=== PATIENT | female | born 1955 | race American Indian/Alaskan Native ===

== ENCOUNTER 2016-10-17 14:42 | Emergency (ER) | payer MEDICAID ==
[2016-10-17 14:48] VITALS: BMI 23.6
[2016-10-17 14:49] VITALS: BP 148/82; PULSE 90; RESP 18; TEMP 98.3; O2SAT 100
--- NOTE | 2016-10-17 16:01 | RAD ---
HISTORY: Right upper back pain COMPARISON: Chest x-ray performed 01/02/15 TECHNIQUE: Chest PA and lateral FINDINGS: LUNGS: No focal consolidation. Please note that chest x-ray has limited sensitivity for the detection of pulmonary masses. PLEURA: No significant pleural effusion identified. No definite pneumothorax . CARDIOVASCULAR: Heart size appears top normal. Ectatic aorta. OSSEOUS STRUCTURES: No acute osseous abnormality identified. VISUALIZED UPPER ABDOMEN: Unremarkable. OTHER FINDINGS: None. IMPRESSION: No focal consolidation, significant pleural effusion, or definite pneumothorax identified.
--- NOTE | 2016-10-17 16:14 | C.PDOC ---
Time Seen by Provider: 10/17/16 15:03 Chief Complaint (Nursing): Back Pain History Per: Patient Onset/Duration Of Symptoms: Days (about 1 month), Waxing/Waning Current Symptoms Are (Timing): Still Present Full Body Front + Back: 1 - pain Quality Of Discomfort: Sharp, "Pain" Severity: Moderate Associated Symptoms: None Exacerbating Factor(s): Turning, Movement Additional History Per: Prior Records Past Medical History Reviewed: Historical Data, Nursing Documentation, Vital Signs Vital Signs: Last Vital Signs Temp 98.3 F 10/17/16 14:48 Pulse 90 10/17/16 14:48 Resp 18 10/17/16 14:48 BP 148/82 10/17/16 14:48 Pulse Ox 100 10/17/16 14:48 - Medical History PMH: HTN Other Surgeries: Hysterectomy - [facility] Procedures VACCINATION NEC (03/03/14) Family History: States: Diabetes - Social History Hx Tobacco Use: Yes Hx Alcohol Use: Yes Hx Substance Use: No - Immunization History Hx Tetanus Toxoid Vaccination: Yes Hx Influenza Vaccination: Yes (2014) Hx Pneumococcal Vaccination: Yes (2014) Review Of Systems Except As Marked, All Systems Reviewed And Found Negative. Constitutional: Negative for: Fever, Weakness ENT: Negative for: Throat Pain Cardiovascular: Negative for: Chest Pain Respiratory: Negative for: Shortness of Breath, Hemoptysis Gastrointestinal: Negative for: Vomiting, Abdominal Pain Musculoskeletal: Negative for: Neck Pain, Leg Pain Skin: Negative for: Rash Neurological: Negative for: Weakness, Numbness, Seizures, Altered Mental Status Physical Exam - Physical Exam Appears: Non-toxic, No Acute Distress Skin: Normal Color, Warm, Dry, No Rash Head: Atraumatic, Normacephalic Eye(s): bilateral: PERRL, EOMI Neck: Normal ROM, Supple Cardiovascular: Rhythm Regular Respiratory: Normal Breath Sounds, No Accessory Muscle Use Gastrointestinal/Abdominal: Soft, No Tenderness Back: No CVA Tenderness, No Vertebral Tenderness, Paraspinal Tenderness (right upper) Extremity: Normal ROM, No Calf Tenderness Neurological/Psych: Oriented x3, Normal Motor, Normal Sensation ED Course And Treatment O2 Sat by Pulse Oximetry: 100 Pulse Ox Interpretation: Normal - Radiology CXR: Viewed By Me, Read By Radiologist CXR Interpretation: Yes: No Acute Disease Reassessment Condition: Improved Medical Decision Making Medical Decision Making: Pt wears a heavy bag on her right shoulder. That is the most likely cause of her pain. Disposition Counseled Patient/Family Regarding: Studies Performed, Diagnosis, Need For Followup, Rx Given, Smoking Cessation - Disposition Referrals: Rhonda Kelley MD [Medical Doctor] - Disposition: HOME/ ROUTINE Disposition Time: 16:16 Condition: IMPROVED Additional Instructions: Follow up with your doctor for further evaluation and treatment. Return to the ER if you develop shortness of breath, chest pain, worsening of symptoms or if you have any other concerns. Prescriptions: Acetaminophen [Tylenol Extra Strength] 2 tab PO Q6 PRN #30 tablet PRN Reason: Pain, Moderate (4-7) Instructions: Back Pain (ED) Print Language: WALLISIAN - Clinical Impression Clinical Impression: Right-sided thoracic back pain
== END 2016-10-17 16:25 | disposition home or self-care (01) ==
LOC: C.ER 14:42
DX: M54.6 Pain in thoracic spine (principal)

== ENCOUNTER 2017-05-01 20:25 | Emergency (ER) | payer MEDICAID ==
[2017-05-01 20:26] VITALS: BMI 23.6
--- NOTE | 2017-05-01 21:03 | C.PDOC ---
Time Seen by Provider: 05/01/17 21:02 Chief Complaint (Nursing): Chest Pain Past Medical History Vital Signs: Last Vital Signs Temp 98.3 F 05/01/17 20:45 Pulse 80 05/01/17 20:45 Resp 14 05/01/17 20:45 BP 135/96 H 05/01/17 20:45 Pulse Ox 98 05/01/17 20:45 - Medical History PMH: Bronchitis, HTN Denies: Alzheimer's Disease, Anemia, Anxiety, Arthritis, Asthma, Bipolar Disorder, CHF (PT DENIES), COPD, Crohn's Disease, Dementia, Depression, Diverticulitis, Emphysema, Fractures, Gastritis, Gall Bladder Disease, HIV, Hypercholesterolemia (PT DENIES), Hyperthyroidism, Hypothyroidism, Kidney Stones , Migraine, Multiple Sclerosis, Osteoporosis, Pancreatitis, Parkinson's Disease , Pneumonia, Post Traumatic Stress Disorder, Pulmonary Embolism, Chronic Kidney Disease, Rheumatoid Arthritis, Schizophrenia, Seizures, Sickle Cell Disease, Sexually Transmitted Disease, Sleep Apnea, TIA Surgical History: Denies: Appendectomy, CABG, Carotid Endarterectomy, Cholecystectomy, Coronary Stent, Tonsillectomy - [facility] Procedures VACCINATION NEC (03/03/14) Family History: States: Diabetes - Social History Hx Tobacco Use: Yes Hx Alcohol Use: Yes Hx Substance Use: No - Immunization History Hx Tetanus Toxoid Vaccination: Yes Hx Influenza Vaccination: Yes (2014) Hx Pneumococcal Vaccination: Yes (2014) ED Course And Treatment ECG: Interpreted By Me, Viewed By Me ECG Rhythm: Sinus Rhythm (79), Nonspecific Changes (lahb, mal) O2 Sat by Pulse Oximetry: 98 Pulse Ox Interpretation: Normal Disposition Counseled Patient/Family Regarding: Studies Performed, Diagnosis - Disposition Disposition Time: 21:02
--- NOTE | 2017-05-01 21:10 | C.PDOC ---
History Of Present Illness Patient presents to the ER with a complaint of cough and sore throat worsening for the past 2-3 weeks. Patient saw her PMD who put her on a nebulizer and OTC medication, however, patient's pain has worsened and now has mild dysphagia. Patient is able to tolerate PO and denies fever, chills, nausea, or vomiting. Time Seen by Provider: 05/01/17 21:02 Chief Complaint (Nursing): Chest Pain History Per: Patient History/Exam Limitations: None Onset/Duration Of Symptoms: Days Current Symptoms Are (Timing): Still Present Quality (Mouth/Throat): Tenderness Symptoms Have Been: Continuous Anticoagulant/Antiplatlet Use?: No Past Medical History Reviewed: Historical Data, Nursing Documentation, Vital Signs Vital Signs: Last Vital Signs Temp 98.3 F 05/01/17 20:45 Pulse 80 05/01/17 20:45 Resp 14 05/01/17 20:45 BP 135/96 H 05/01/17 20:45 Pulse Ox 98 05/01/17 21:11 - Medical History PMH: Bronchitis, HTN Surgical History: - [facility] Procedures VACCINATION NEC (03/03/14) Family History: States: Diabetes - Social History Hx Tobacco Use: Yes Hx Alcohol Use: Yes Hx Substance Use: No - Immunization History Hx Tetanus Toxoid Vaccination: Yes Hx Influenza Vaccination: Yes (2014) Hx Pneumococcal Vaccination: Yes (2014) Review Of Systems Constitutional: Negative for: Fever, Chills ENT: Positive for: Throat Pain Respiratory: Positive for: Cough Gastrointestinal: Negative for: Nausea, Abdominal Pain Physical Exam - Physical Exam Appears: Non-toxic, Other (Awake, Alert) Skin: Warm, Dry Head: Normacephalic Ear(s): Bilateral: Normal Nose: No Discharge, No Septal Hematoma Oral Mucosa: Moist Throat: Erythema, Exudate (White patch to tonsillar pillar) Neck: No Midline Cervical Tenderness, No Paracervical Tenderness, Supple Chest: Symmetrical, No Tenderness Cardiovascular: Rhythm Regular Respiratory: No Rales, No Rhonchi, No Wheezing Gastrointestinal/Abdominal: Soft, No Tenderness Neurological/Psych: Oriented x3 ED Course And Treatment O2 Sat by Pulse Oximetry: 98 (Room air) Pulse Ox Interpretation: Normal Progress Note: EKG ordered. Zithromax and prednisone administered. Disposition Counseled Patient/Family Regarding: Studies Performed, Diagnosis, Need For Followup, Rx Given - Disposition Referrals: Rhonda Kelley MD [Medical Doctor] - Disposition: HOME/ ROUTINE Disposition Time: 21:08 Condition: FAIR Prescriptions: Azithromycin [Zithromax Tri-[place]] 500 mg PO DAILY #3 tablet Instructions: Pharyngitis (ED), Strep Throat (ED) Forms: [place] (Slovak) - Clinical Impression Clinical Impression: Pharyngitis, Strep throat - Scribe Statement The provider has reviewed the documentation as recorded by the [facility] All medical record entries made by the [facility] were at my direction and personally dictated by me. I have reviewed the chart and agree that the record accurately reflects my personal performance of the history, physical exam, medical decision making, and the department course for this patient. I have also personally directed, reviewed, and agree with the discharge instructions and disposition.
[2017-05-01 22:05] VITALS: BP 138/92; PULSE 82; RESP 16; TEMP 99.2; O2SAT 99
--- NOTE | 2017-05-04 09:46 | CARD ---
APPROVED REPORT EKG Measurement Heart [id number] <Conclusion> Normal sinus rhythm Right atrial enlargement Left anterior fascicular block Cannot rule out Anterior infarct, age undetermined Abnormal ECG
== END 2017-05-01 22:05 | disposition home or self-care (01) ==
LOC: C.ER 20:25
DX: J02.0 Streptococcal pharyngitis (principal); I10 Essential (primary) hypertension; Z87.891 Personal history of nicotine dependence